=== PATIENT | male | born 1940 | race Caucasian/White ===

== ENCOUNTER 2018-04-14 06:28 | Day surgery (SDC) | payer MEDICARE, BC ==
[2018-04-10 14:11] LABS: BASOPHILS % (AUTO) 0.4 % (0-1); EOSINOPHILS # (AUTO) 2.5 X10'3 (0-0.9); EOSINOPHILS % (AUTO) 24.3 % (0-6); LYMPHOCYTES % (AUTO) 19.6 % (21-51); MEAN CORPUSCULAR HEMOGLOBIN 27.6 PG (27.0-31.0); MEAN CORPUSCULAR HGB CONC 32.6 % (33.0-36.5); MEAN CORPUSCULAR VOLUME 84.8 FL (78-98); MEAN PLATELET VOLUME 9.6 FL (7.4-10.4); MONOCYTES # (AUTO) 0.9 X10'3 (0-0.9); MONOCYTES % (AUTO) 9.3 % (2-12); NEUTROPHILS # (AUTO) 4.7 X10'3 (1.8-7.7); NEUTROPHILS % (AUTO) 46.4 % (42-75); PRE OP HEMATOCRIT 43.5 % (42.0-52.0); PRE OP HEMOGLOBIN 14.2 g/dL (14.0-17.9); PRE OP PLATELET COUNT 180 X10'3 (140-440); RED BLOOD COUNT 5.13 X10'6 (4.70-6.10); RED CELL DISTRIBUTION WIDTH 15.9 % (11.5-14.5)
[2018-04-10 14:36] LABS: ALBUMIN 3.3 G/DL (3.4-5.0); ALBUMIN/GLOBULIN RATIO 0.8 (1.1-1.5); ALKALINE PHOSPHATASE 60 IU/L (46-116); BLOOD UREA NITROGEN 20 MG/DL (7-18); CHLORIDE 104 MMOL/L (99-107); PRE OP ALT 20 U/L (30-65); PRE OP ANION GAP 7 (8-16); PRE OP AST 14 U/L (10-37); PRE OP BILIRUB, TOTAL 0.3 MG/DL (0.0-1.0); PRE OP GLUCOSE 96 MG/DL (70-104); PRE OP POTASSIUM 4.1 MMOL/L (3.4-5.1); PRE OP SODIUM 139 MMOL/L (135-145); TOTAL PROTEIN 7.2 G/DL (6.4-8.2); eGFR 72 ML/MIN
[2018-04-10 15:52] LABS: TOTAL CELLS COUNTED 100
[2018-04-10 15:53] LABS: ANISOCYTOSIS 1+; PLATELET ESTIMATE NORMAL
[~2018-04-14] VITALS: Ht 180.3 cm; Wt 73.5 kg
[2018-04-14 06:00] VITALS: BP 127/89
[~2018-04-14 06:28] MED LIST: CHOL100044 PO; CYCL10TA10 PO; DOCUMENT DATE & TIME OF BETA-BLOCKER PO ONE; ESOM40CA54 PO; FERR325T32 PO; GLUC1TAB9 PO; LORA10TA7 PO; METO-395 PO; MIDO5TAB PO; OCUVITE PO; PEPCID COMPLETE PO; SOTA80TA PO; TAMS0.4C32 PO; TRAM50TA2 PO; ceFAZolin 1GM/D5W- ADD-VANTAGE 50 ML IV ONE; famotidine 20mg tablet PO ONE; ringers solution, lacted 1,000 ML IV SCH
[2018-04-14] MEDS ORDERED: BUPIVAcaine/PF 2.5mg/ml (0.25%) 10ml vial ONE (10:03)
[2018-04-14] MEDS ORDERED: LIDOcaine 0.5% (5mg/ml) 50ml vial ONE (10:04)
[2018-04-14] MEDS ORDERED: MIDAZolam 5mg/5ml vial ONE (10:11)
[2018-04-14] MEDS ORDERED: fentaNYL/PF 50MCG/1 ML 2ML syringe ONE (10:11)
[2018-04-14] MEDS ORDERED: propofol inj 20 ML IV ONE (10:27)
[2018-04-14] MEDS ORDERED: meperidine/PF 25mg/ml syringe IV PRN ×3 (10:55)
[2018-04-14] MEDS ORDERED: morphine 4 MG/ML inj SYRINge IV PRN ×2 (10:55)
[2018-04-14] MEDS ORDERED: ondansetron/PF 4mg/2ml inj IV PRN (10:55)
[2018-04-14] MEDS ORDERED: ringers solution, lacted 1,000 ML IV SCH (10:55)
[2018-04-14] MEDS ORDERED: proCHLORperazine 10 MG/2 ml inj IV PRN (10:55)
[2018-04-14 11:27] VITALS: BP 104/72
--- NOTE | 2018-04-14 11:27 | NUR ---
Received from OR via [facility] , accompanied by Anesthesiologist JAMARI and report given by Anesthesiolgist. PATIENT WITH SPLINT TO RIGHT WRIST THAT IS CDI. DENIES PAIN. MOVEMENT OF ALL FINGERS ON RIGHT HAND HOWEVER THUMB STILL NUMB. + CAP REFILL AND ARE PWD. Addendum: 04/14/18 at 1141 by Merrick Damian RN, RN Amended: Links added.
[2018-04-14 11:37] VITALS: BP 107/71
[2018-04-14 11:47] VITALS: BP 113/74
[2018-04-14 11:57] VITALS: BP 118/71
--- NOTE | 2018-04-14 12:07 | NUR ---
ALL DC CRITERIA HAS BEEN MET. IV TAKEN OUT WITHOUT COMPLICATIONS. ALL INSTRUCTIONS COVERED AND ALL QUESTIONS ANSWERED. DRESSINGS CDI. OUT VIA WHEELCHAIR TO PERSONAL VEHICLE WHERE PATIENT WAS SECURED IN AND DRIVEN HOME BY FAMILY. DISCUSSED USE OF CPAP AT HOME POST OP AND AND PATIENT AGREE TO COMPLY WITH RECOMMENDATION. Addendum: 04/14/18 at 1215 by Merrick Damian RN, RN Amended: Links added.
== END 2018-04-14 12:07 | disposition home or self-care (01) ==
LOC: PAS 06:28
PROVIDERS: ATTEND Orthopaedic Surgery Hand Surgery
DX: M19.031 Primary osteoarthritis, right wrist (principal); G56.01 Carpal tunnel syndrome, right upper limb; M18.11 Unilateral primary osteoarthritis of first carpometacarpal joint, right hand; Z79.899 Other long term (current) drug therapy; Z98.890 Other specified postprocedural states
CPT/HCPCS: 25800; 36415; 64721; 80053; 85025; A6449; C1713; J0690; J2001; J2250; J2704; J3010; J3490; 88305; A7000; J7120

== ENCOUNTER 2022-10-29 06:33 | Day surgery (SDC) | payer MEDICARE, BC ==
[2022-10-25 15:15] LABS: BASOPHILS # (AUTO) 0.1 X10'3 (0-0.2); EOSINOPHILS % (AUTO) 27.7 % (0-6); LYMPHOCYTES # (AUTO) 1.9 X10'3 (1.1-4.8); LYMPHOCYTES % (AUTO) 17.6 % (21-51); MEAN CORPUSCULAR HEMOGLOBIN 28.2 PG (27.0-31.0); MEAN CORPUSCULAR HGB CONC 32.8 g/dL (33.0-36.5); MEAN CORPUSCULAR VOLUME 85.8 FL (78-98); MEAN PLATELET VOLUME 9.9 FL (7.4-10.4); MONOCYTES # (AUTO) 1.2 X10'3 (0-0.9); MONOCYTES % (AUTO) 10.8 % (2-12); NEUTROPHILS # (AUTO) 4.7 X10'3 (1.8-7.7); NEUTROPHILS % (AUTO) 42.9 % (42-75); PRE OP HEMATOCRIT 43.3 % (42.0-52.0); PRE OP HEMOGLOBIN 14.2 g/dL (14.0-17.9); PRE OP PLATELET COUNT 224 X10'3 (140-440); RED BLOOD COUNT 5.04 X10'6 (4.70-6.10)
[2022-10-25 15:43] LABS: ALBUMIN 3.4 G/DL (3.4-5.0); ALBUMIN/GLOBULIN RATIO 0.8 (1.1-1.5); ALKALINE PHOSPHATASE 83 IU/L (46-116); BLOOD UREA NITROGEN 16 MG/DL (7-18); BUN/CREATININE RATIO 14.4 (10.0-20.0); CALCIUM 9.3 MG/DL (8.5-10.1); CHLORIDE 103 MMOL/L (99-107); CREATININE 1.11 MG/DL (0.60-1.10); PRE OP ALT 26 U/L (30-65); PRE OP ANION GAP 9 (8-16); PRE OP AST 20 U/L (10-37); PRE OP BILIRUB, TOTAL 0.3 MG/DL (0.0-1.0); PRE OP GLUCOSE 74 MG/DL (70-104); PRE OP SODIUM 141 MMOL/L (135-145); TOTAL CARBON DIOXIDE 28.9 MMOL/L (24-32); TOTAL PROTEIN 7.8 G/DL (6.4-8.2); eGFR 63 ML/MIN
[2022-10-25 16:17] LABS: TOTAL CELLS COUNTED 100
[2022-10-25 16:19] LABS: PLATELET ESTIMATE NORMAL
[2022-10-29] VITALS (13 sets, daily range): BP systolic 97–121; BP diastolic 61–82
[~2022-10-29] VITALS: Ht 180.3 cm; Wt 72.0 kg
[~2022-10-29 06:33] MED LIST changes: -CHOL100044 PO; -CYCL10TA10 PO; +ESOM20CA PO; -ESOM40CA54 PO; -FERR325T32 PO; +GABA-530 PO; -GLUC1TAB9 PO; -LORA10TA7 PO; +METO-384 PO; -METO-395 PO; +MEXI200C PO; -MIDO5TAB PO; +MOVE FREE; -OCUVITE PO; +ONE A DAY VITAMIN; -TRAM50TA2 PO; -ceFAZolin 1GM/D5W- ADD-VANTAGE 50 ML IV ONE; +cefazolin 2gm/D5W 100mL 100 ML IV ONE
[2022-10-29] MEDS ORDERED: BUPIVAcaine/PF 2.5mg/ml (0.25%) 10ml vial ONE (06:46)
[2022-10-29] MEDS ORDERED: ringers solution, lacted 1,000 ML IV SCH (07:20)
[2022-10-29] MEDS ORDERED: morphine 2 MG/ML inj. syringe IV PRN (07:20)
[2022-10-29] MEDS ORDERED: ondansetron/PF 4mg/2ml inj IV PRN (07:20)
[2022-10-29] MEDS ORDERED: morphine 4 MG/ML inj SYRINge IV PRN (07:20)
[2022-10-29] MEDS ORDERED: hydrALAZINE 20mg/ml inj. IV PRN (07:20)
[2022-10-29] MEDS ORDERED: fentaNYL/PF 50MCG/1 ML 2ML syringe ONE (09:23)
[2022-10-29] MEDS ORDERED: MIDAZolam 1 MG/ML 5ML VIAL ONE (09:23)
[2022-10-29] MEDS ORDERED: LIDOcaine 0.5% (5mg/ml) 50ml vial ONE (09:23)
[2022-10-29] MEDS ORDERED: ketorolac trometh. 30mg/ml inj. ONE (09:24)
[2022-10-29] MEDS ORDERED: ePHEDrine 50MG/ML INJ. ONE (10:29)
--- NOTE | 2022-10-29 10:40 | NUR ---
Received from OR via [facility], accompanied by DR. Haddad - anesthesia report given. PATIENT STILL SLEEPING, NO S/S OF PAIN, V/S WNL, 20G TO RUE, WRIST DRESSING TO LEFT HAND - CDI WITH ICE AND ELEVATION.
[2022-10-29] MEDS ORDERED: acetaminophen 1,000mg/100ml IV 100 ML IV ONE (12:00)
[2022-10-29] MEDS ORDERED: HYDROcodone/acetaminophen 5mg/325mg tablet PO ONE (12:00)
--- NOTE | 2022-10-29 12:40 | NUR ---
PATIENT A&OX4, PAIN MANAGEABLE AFTER IV MEDS AND 1 NORCO, V/S WNL, 20G TO ALISONE D/C, LEFT WRIST DRESSING CDI W/ SLING. ICE AND ELEVATED LUE. I HAVE REVIEWED D/C INSTRUCTIONS WITH PATIENT and they have verbalized understanding, patient d/c home with all belongings and family gave transport home
== END 2022-10-29 12:40 | disposition home or self-care (01) ==
LOC: PAS 06:33
PROVIDERS: ATTEND Orthopaedic Surgery Hand Surgery
DX: M19.032 Primary osteoarthritis, left wrist (principal); G47.30 Sleep apnea, unspecified; N40.0 Benign prostatic hyperplasia without lower urinary tract symptoms; G89.29 Other chronic pain; Z98.890 Other specified postprocedural states; Z72.89 Other problems related to lifestyle; Z95.810 Presence of automatic (implantable) cardiac defibrillator; Z85.828 Personal history of other malignant neoplasm of skin; Z79.899 Other long term (current) drug therapy; Z82.49 Family history of ischemic heart disease and other diseases of the circulatory system
CPT/HCPCS: 25820; 36415; 80053; 82948; 85025; 93005; C1713; J0131; J0690; J2250; J2270; J3010; J3490; J7030; J7120; Z7506; Z7508; Z7512; 85007; A4565; A4618; A7000; J1885